=== PATIENT | male | born 1975 | race Caucasian/White ===

== ENCOUNTER 2019-05-24 08:57 | Inpatient (IN) | payer SELFPAY ==
[2019-05-24] VITALS (14 sets, daily range): BP systolic 99–137; BP diastolic 49–81; BMI 37.9
[~2019-05-24] VITALS: Ht 182.9 cm; Wt 136.8 kg
[2019-05-24 09:39] LABS: BASOPHILS 0.3 % (0-2); EOSINOPHILS 0.9 % (0-7); IMMATURE GRANULOCYTES 2.6 % (0-5); LYMPHOCYTES 8.6 % (15-50); MCH 38.4 pg (26.0-34.0); MCHC 35.2 g/dL (31.0-37.0); MEAN PLATELET VOLUME 10.2 fL (7.4-10.4); MONOCYTES 11.1 % (2-11); NEUTROPHILS 76.5 % (40-80); PLATELET COUNT 118 10x3/uL (130-400); RDW 15.9 % (11.5-14.5)
[2019-05-24 09:48] LABS: HEMATOCRIT 19.3 % (42.0-54.0); HEMOGLOBIN 6.8 g/dL (13.5-17.5); RBC 1.77 10x6/uL (4.20-6.10)
[2019-05-24 10:02] LABS: ALBUMIN 2.5 g/dL (3.4-5.0); ALKALINE PHOSPHATASE 206 U/L (46-116); ALT (SGPT) 45 U/L (10-68); AMYLASE - SERUM 89 U/L (25-115); BILIRUBIN - TOTAL 34.93 mg/dL (0.2-1.3); CALC OSMOLALITY 259 mosm/kg (275-300); CALCIUM 7.9 mg/dL (8.5-10.1); CARBON DIOXIDE 20.9 mmol/L (21.0-32.0); CHLORIDE - SERUM 87 mmol/L (98-107); CREATININE - SERUM 2.4 mg/dL (0.6-1.3); GLUCOSE 124 mg/dL (74-106); LIPASE 1697 U/L (73-393); POTASSIUM - SERUM 3.5 mmol/L (3.5-5.1); PROTEIN - SERUM 6.9 g/dL (6.4-8.2); SODIUM 123 mmol/L (136-145); TROPONIN-I < 0.017 ng/mL (0.000-0.060); UREA NITROGEN 44 mg/dL (7-18); eGFR NON AFRICAN AMERICAN 32 mL/min (90-120)
[2019-05-24 10:19] LABS: WBC 5.8 10x3/uL (4.8-10.8)
[2019-05-24 10:27] LABS: % SATURATION 94 % (15-55); IRON 140 ug/dl (35-150); TOTAL IRON BIND CAPACITY 148 ug/dl (260-445)
[2019-05-24 10:32] LABS: UNSAT IRON BIND CAPACITY 8 ug/dl (150-375)
--- NOTE | 2019-05-24 12:21 | NUR ---
PT REMAINS ALTERED. MOTHER AT BS. PRBC STARTED
[2019-05-24 12:39] LABS: INR 1.87 (0.85-1.17); PROTIME 20.9 SECONDS (11.6-15.0)
[2019-05-24 18:40] LABS: HEMATOCRIT 23.4 % (42.0-54.0)
--- NOTE | 2019-05-24 19:10 | NUR ---
Received patient in bed with eyes closed, assessment completed per flowsheet. Patient withdraws from noxious stimuli, unitelligible sounds/does not follow commands. Eyes reddened/jaundiced, dry crusty substance on eye lids. Tongue stuck to roof of mouth, patient unable to stick out tongue as intructed. S1/S2 noted NSR on telemetry, rythmic and regular. Breathing is shallow on 4L via NC with O2 sat 94%, lungs sounds clear bilateral upper and mid with diminished lower. Abdomen is distended/firm/obese with bowel sounds active x4, non-tender. Salas secured, concentrated darlene urine noted. All pulses bounding with generalized edema noted all, skin is severly jaundiced with dry cracking/sores noted bilateral feet. Unable to assess pain at this time, see flowsheet for details. All VSS and will continue to monitor.
--- NOTE | 2019-05-24 19:13 | NUR ---
1415-RECIEVED AND TRANSFERED TO ICU BED--BOTH EYELIDS CRUSTED OVER AND REQUIRED SALINE CLEANING-??PINK EYE??-MOTHER VOLUNTEERED THOSE ARE HIS CONTACTS-HE NEVER TAKES THEM OUt"-QUESTIONED IF THEY ARE THE MONTHLY TYPE-SHE SAID NO -JUST NEVER TAKES THEM OUT LIKE HIS FATHER--SALINE FLUSH TO EYES-R CONTACT REMVED-YELLOW MUCOUS TYPE STRANDS REMOVED-L EYE CONTINUE SALINE FLUSH-CONTACT VISIBLE-BUT CONTINUES STRONGLY ADHERED-ATTEMPTED TO GET PT TO STICK OUT HIS TONGUE-NOT ABLE TO--APPEARS ADHERED TO ROOF OF MOUTH-SALINE FLUSH TO ORAL CAVITY-R HAND IV INFUSING [address] ST OF PRBC-25% LBI--PLACED TO MONITOR FOR SR -RR 22-O2 SAT 94 R/A-MOTHER AT BEDSIDE HISTORIAN--REMOVED PT SOCKS-NOTED LARGE AMOUNT OF FUNGAL TYPE TISSUE/DRY SKIN AND DEBRIS TO COMPLETE FOOT JERARDO-PALPABLE PULSES STRONG JERARDO--PT STARTING TO SAY OCCASIONAL WORD-INCOMPREHESIBLE--NOTED BOTH HAND NAIL BEDS FUNGAL TYPE MATERIAL AND DEBRIS 1435-PRBC COMPLETED -UNIT NUMBER [id number] STARTED AND SET TO RUN OVER 2H WITH IV PUMP 1600-STERILE SALINE WASH REPEATED TO BOTH EYES-REMOVAL OF ADDITIONAL MUCUS STRANDS-NOT ABLE TO REMOVE L CONTAC 1630-MCLEOD CATH PLACED-PT INCREASED OBTUNDED 1744-PRBC INFUSED-LAB NOTIFIED 1814-REPEAT H AND H DONE AND AMMONIA LEVEL-PT INCREASED OBTUNDED AND NOT ABLE TO SAFELY SWALLOW 1824-AMMONIA LEVEL CALLED TO DR LIMA AND CHANGE OF ROUTE GIVEN TO RECTAL- REPEAT ORAL CARE DONE-ABLE TO MOVE TONGUE
--- NOTE | 2019-05-24 19:15 | NUR ---
Attempted to notify Head Orthopedic Team Physician of medication to be pulled, unable to reach. Will attempt to notify again later.
--- NOTE | 2019-05-24 19:30 | NUR ---
Unable to perform Suicide screening on patient, incomprehensible verbal responses/unable to follow commands at this time.
--- NOTE | 2019-05-24 21:00 | NUR ---
Patient laying in bed with eyes closed, withdraws from noxious stimuli/does not follow commands. steam station supervisor paged to notify of medication needs, unable to reach via phone. Will continue attempting to contact, no further needs and will continue to monitor.
--- NOTE | 2019-05-24 22:05 | NUR ---
welding equipment repairer supervisor notified of medication need, medication to be removed by snow removing supervisor and given as ordered.
--- NOTE | 2019-05-24 22:45 | NUR ---
Patient placed on High flow NC by RT, O2 increased to 6L.
--- NOTE | 2019-05-24 23:10 | NUR ---
Reassessment completed per flowsheet. Patient does not follow commands, unintelligible verbal responses. Eyes reddened with yellowed sclera, dried secretions on eye lids. S1/S2 noted NSR on telemetry, rythmic and regular. Breathing is shallow on 6L via HFNC with O2 sat 92%, lung sounds clear bilateral upper and mid with diminished lower. Abdomen is distended/obese with bowel sounds active x4, non-tender. All pulses bounding with generalized edema all, cap refill < 3 sec. Unable to assess pain at this time, repositioned for comfort. See flowhsheet for details, all VSS and will continue to monitor.
[2019-05-24 23:39] LABS: HEMATOCRIT 23.6 % (42.0-54.0)
--- NOTE | 2019-05-24 23:45 | NUR ---
300ml Lactulose / 700ml water enema given as ordered, patient unable to hold enema in with immediate fluid return noted. Patient placed on L side to facilitate retention, will reposition in 1 hr.
[2019-05-25] VITALS (96 sets, daily range): BP systolic 68–131; BP diastolic 22–87; BMI 38.0
--- NOTE | 2019-05-25 00:45 | NUR ---
Levophed initiated at 30 mcg/min for marked hypotension/bradycardia, will titrate as needed to maintain MAP > 65.
--- NOTE | 2019-05-25 01:40 | NUR ---
0020 - Patient HR decreased on telemetry, repositioned in bed with head elevated. Labored respirations observed, patient changed to NRB and will continue to monitor. 0030 - Unable to reach Dr Kirby x2 attempts, paged Nakia CARDOSO to notify of changes in condition. 0040 - Spoke to Nakia CARDOSO, updated on current status. Informed she will notify Dr Kirby to call. 0055 - Spoke to Dr Kirby via phone and updated on current status, new orders received. 0105 - Patient hypotensive with marked decrease in HR, breathing is gasping/agonal. Code Blue called, patient intubated by Dr Higuera.
--- NOTE | 2019-05-25 03:00 | NUR ---
Reassessment completed per flowsheet, no changes noted from previous assessment. S1/S2 noted Controlled Afib on telemetry. Breathing is even/unlabored on 2L via NC with O2 sat 100%, lung sounds clear bilateral upper and mid with diminished lower. Bilateral groin incision dressing CDI, soft to palpation, no bruising/bleeding noted. All pulses palpable with cap refill < 3 sec, skin warm/dry. Denies pain or other needs, see flowsheet for details. All VSS and will continue to monitor.
--- NOTE | 2019-05-25 03:10 | NUR ---
Reassessment completed per flowsheet. Eyes reddened/yellowed sclera, unable to remove contact L eye with multiple fluch attempts. ETT 7.5 @ 22cm secured, oral care/suctioning provided. S1/S2 noted NSR on telemetry with HR 92, rythmic and regular. Vent settings A/C R-20 V-550 60% P-5 with O2 sat 94%, lung sounds clear bilateral upper and mid with diminished lower. Abdomen is distended/firm with bowel sounds active x4, non-tender. All pulses bounding with generalized edema noted all, cap refill < 3 sec. Repositioned for comfort, no further needs at this time. See flowsheet for details, all VSS and will continue to monitor.
[2019-05-25 04:54] LABS: BASOPHILS 0.5 % (0-2); EOSINOPHILS 0.5 % (0-7); HEMATOCRIT 23.9 % (42.0-54.0); HEMOGLOBIN 8.1 g/dL (13.5-17.5); IMMATURE GRANULOCYTES 1.3 % (0-5); LYMPHOCYTES 8.2 % (15-50); MCH 36.2 pg (26.0-34.0); MCHC 33.9 g/dL (31.0-37.0); MEAN PLATELET VOLUME 9.6 fL (7.4-10.4); MONOCYTES 11.5 % (2-11); PLATELET COUNT 120 10x3/uL (130-400); RDW 21.5 % (11.5-14.5)
--- NOTE | 2019-05-25 05:00 | NUR ---
Patient sedated in bed on vent with eyes closed, uncoordinated movements observed. Patient does not open eyes/follow instructions, withdraws from noxious stimuli. Oral care/suctioning provided, repositioned for comfort. no further needs and will continue to monitor.
[2019-05-25 05:02] LABS: RBC 2.24 10x6/uL (4.20-6.10); WBC 8.8 10x3/uL (4.8-10.8)
[2019-05-25 05:03] LABS: INR 1.86 (0.85-1.17); MCV 106.7 fL (80.0-100.0); PROTIME 20.7 SECONDS (11.6-15.0)
[2019-05-25 05:23] LABS: ANION GAP 19.1 mmol/L (8-16); CALCIUM 7.4 mg/dL (8.5-10.1); CARBON DIOXIDE 20.4 mmol/L (21.0-32.0); CHOL - HDL RATIO 8.2 ratio (2.3-4.9); LDL-HDL RATIO 3.3 ratio (1.5-3.5); MAGNESIUM - SERUM 2.1 mg/dL (1.8-2.4); PHOSPHOROUS 5.1 mg/dL (2.5-4.9); POTASSIUM - SERUM 3.5 mmol/L (3.5-5.1); T4 THYROXIN - FREE 0.87 ng/dL (0.76-1.46); THYROID STIMULATING HORMONE 1.06 uIU/mL (0.36-3.74)
[2019-05-25 05:34] LABS: CREATININE - SERUM 3.4 mg/dL (0.6-1.3)
--- NOTE | 2019-05-25 07:00 | NUR ---
REPORT RECEIVED FROM THE OFF GOING RN. SEE ASSESSMENT IN THE PTS FLOW SHEET. PT NOTED TO HAVE INTERMITTED TREMORS. PT HAS PERIORBITAL EDEMA NOTED. YELLOW/RED SCELARA. PT JAUNDICED AND GENERLIZED ANASARCA NOTED. PT INTUBATED. LEFT LUNG SOUNDS TIGHT COMPARED TO HIS RIGHT LUNG. SUCTIONED BROWNISH/TANNINSH SECREATIONS. EYES PERRLA. PT DOES NOT FOLLOW COMMANDS BUT REACTS TO PAIN. PT NOT ON ANY SEDATION AT THIS TIME. ABD LARGE,ROUND AND TIGHT. HYPOACTIVE BS NOTED X4. FC NOTED WITH SCANT AMOUNT OF DARK CONSETRATED YELLOW/BROWN URINE. WILL MONITOR.
--- NOTE | 2019-05-25 07:45 | NUR ---
SPOKE WITH DR LIMA ABOUT THE PTS CONDITION. ORDERS FOR STAT ABG, START DOPAMINE, STAT CXR, PRO BMP.
--- NOTE | 2019-05-25 07:50 | NUR ---
ABGS OBTAINED. ORDERS FOR VANC 1G QD, MERREM 1G Q12H CONSULT RENAL, PULMONARY AND SURGERY FOR TRIALYSIS PLACEMENT.
--- NOTE | 2019-05-25 08:07 | NUR ---
DR MOON AND DR ROSS PAGED AND AWARE OF CONSULT.
--- NOTE | 2019-05-25 08:10 | NUR ---
WILL PAGE DR LAZO ABOUT TRIALYSIS BUT WILL WAIT FOR DR MOON TO GIVE OK TO PLACE IT AFTER HE ROUNDS AND SEES THE PT.
--- NOTE | 2019-05-25 08:24 | NUR ---
DR HERNANDEZ PAGEHelen. HE IS AWARE OF CONSULT. HOLD OFF ON IV ABT UNTIL DR HERNANDEZ SEES THE PT.
--- NOTE | 2019-05-25 09:26 | NUR ---
TREMORS GETTING WORSE. PT STILL UNABLE TO FOLLOW COMMANDS. PRN ATIVAN GIVEN. SEE DEC.
--- NOTE | 2019-05-25 09:36 | NUR ---
SPOKE WITH DR HERNANDEZ. HE STATED THAT HE WANTS THE PT DOWN IN REGULAR ICU.
--- NOTE | 2019-05-25 09:38 | NUR ---
SPOKE WITH REGULAR ICU CHARGE NURSE ABOUT DR HERNANDEZ WANTING THE PT DOWNSTAIRS.
--- NOTE | 2019-05-25 10:17 | NUR ---
DR LIMA AT THE PTS BEDSIDE. MOTHER WAS NOT PRESENT IN THE WAITING ROOM.
--- NOTE | 2019-05-25 10:52 | NUR ---
DR HERNANDEZ AT THE PTS BEDSIDE. HE STATED THAT HE IS GOING TO GO AHEAD AND PUT IN A CVL. I EXPLAINED THAT DR LAZO WAS CONSULTED FOR A POSSIBLE TRIALYSIS. DR HERNANDEZ WANTS TO PROCEED WITH CVL PLACEMENT. MOTHER NOT IN THE WAITING ROOM. SHE WAS CALLED AND TELEPHONE CONSENT FOR CVL PLACEMENT OBTAINED AND WITTNESSED WITH MAUREEN RN. PREPARE FOR CVL AND BRONCH SOON.
--- NOTE | 2019-05-25 11:39 | NUR ---
DR HERNANDEZ AT THE PTS BEDSIDE. BRONCH COMPLETED. CVL PLACED PER DR HERNANDEZ IN THE LEFT SUBCLAVIAN. ORDERS TO GIVE 2MG OF VERSED NOW AND START VERSED GTT AT 2MG/H. DC DIPROVAN AND ATIVAN Q2PRN.
--- NOTE | 2019-05-25 14:12 | NUR ---
DR HERNANDEZ STATED TO GIVEN 2MG VERSED BOLUS AND INCREASED VERSED TO 4MG/H. DR HERNANDEZ AT THE PTS BEDSIDE AND PLACED HUMBERTO IN HIS LEFT RADIAL ARTERY.
--- NOTE | 2019-05-25 14:35 | NUR ---
PT TRANSFERED DOWN TO REGULAR IN ICU WITH STABLE VITALS SIGNS.
[2019-05-25 14:37] LABS: MACROPHAGES BF 7 %; MESOTHELIALS BF 1 %; NEUT - BF 78 %
[2019-05-25 15:28] LABS: HEMATOCRIT 24.2 % (42.0-54.0); HEMOGLOBIN 8.4 g/dL (13.5-17.5)
--- NOTE | 2019-05-25 15:44 | NUR ---
PT ARRIVED TO 2305 1450 SEDATED ON VENT, L SUBCLAVIAN CVL DRESSING CDI, SEE IV FLOWSHEET, L RADIAL A LINE ZEROED, GOOD WAVEFORM, WRIST PROTECTOR IN PLACE, MCLEOD DRAINING DARK URINE, SEE REASSESSMENT FOR DETAILS. DR HERNANDEZ PAGED FOR LOW BP DESPITE PRESSORS, ORDERS FOR SET RATE VASOPRESSIN, AWAITING FROM PHARMACY. AWAITING LACTULOSE ENEMA FROM PHARMACY.
--- NOTE | 2019-05-25 16:16 | NUR ---
SPO2 DROPPING TO 80% SUCTIONING DONE, RT IN ROOM, DR HERNANDEZ PAGED AND GAVE ORDERS TO RT
--- NOTE | 2019-05-25 16:17 | NUR ---
PER DR. HERNANDEZ A TIMED ALVEOLAR RECRUITMENT WAS DONE. PEEP INCREASED TO 25 FOR EXACTLY 40 SECS WAS PERFORMED. ABG WILL BE CHECKED EXACTLY 45 MINS AFTER PEEP INCREASED TO 8 AFTER RECRUITMENT EXERCISE.
--- NOTE | 2019-05-25 17:42 | NUR ---
1700 DR CHOI IN UNIT, DISCUSSED PTS LABILE BP AND OKAYED TO HOLD LACTULOSE AND START RECTAL TUBE AT SHIFT CHANGE FOR LACTULOSE ADMIN RT STATED THEY NOTIFIED DR HERNANDEZ OF FOLLOW UP ABGS, PAGED TO VERIFY
--- NOTE | 2019-05-25 18:19 | NUR ---
SPOKE WITH DR HERNANDEZ ABOUT ABGS, STATED TO VERIFY WITH RENAL PAGED DR MOON AND RECIEVED RETURNCALL REVIEWED LABS, ORDERS FOR AN AMP BICARB NOW AND IN 30 MINUTES
--- NOTE | 2019-05-25 20:32 | NUR ---
ADJUSTED PT PEEP TO 10. TO HELP WITH OXYGENATION. SATS STILL 85% ON ABG
[2019-05-25 22:42] LABS: APPEARANCE HAZY (CLEAR); BILIRUBIN 3+ (NEGATIVE); COLOR DK YELLOW (YELLOW); GLUCOSE NEGATIVE (NEGATIVE); KETONE NEGATIVE (NEGATIVE); NITRITE NEGATIVE (NEGATIVE); PROTEIN 1+ mg/dL (NEGATIVE); SPECIFIC GRAVITY 1.015 (1.005-1.020); UROBILINOGEN NORMAL (NORMAL)
[2019-05-25 22:43] LABS: BACTERIA MANY /hpf (NONE SEEN); RED CELLS - URINE 25-50 /hpf (0-5)
[2019-05-25 23:23] LABS: HEMATOCRIT 25.7 % (42.0-54.0); HEMOGLOBIN 8.9 g/dL (13.5-17.5)
--- NOTE | 2019-05-25 23:58 | NUR ---
1900 REPORT RECEIVED CARE ASSUMED ASSESSMENT DONE SEE FLOW SHEET. PT UNSTABLE. RECTAL TUBE INSERTED. LINEN CHANGE. AIR OVERLAY. 1999 ABG DRAWN. DECRESE O2 SAT AND BP. DR VICTOR AND DR MOON INFORMED OF PT STATUS. UNABLE TO TURN. PEEP UP TO 10. MEDS ORDERED. PHARMACY CALLED. 2099 MEDS GIVENT TITRATED TO AFFECT. STILL UNABLE TO TURN. 2299 REASSSESSMENT DONE SEE FLOW SHEET. VSS. TEACHING PROVIDED QUESTIONS ANSWERED.
[2019-05-26] VITALS (109 sets, daily range): BP systolic 10–135; BP diastolic 44–75
--- NOTE | 2019-05-26 01:00 | NUR ---
TEMP 102. ICE PACKS APPLIED WILL CONTINUE TO MONITOR.
--- NOTE | 2019-05-26 03:00 | NUR ---
REASSESSMENT DONE SEE FLOW SHEET. HUMBERTO PRESSURE DROP DAMPENED WAVE FORM. NO COORELATION WITH NIBP. WILL CONTINUE TO MONITOR.
[2019-05-26 05:23] LABS: INR 2.66 (0.85-1.17); PROTIME 27.6 SECONDS (11.6-15.0)
[2019-05-26 05:25] LABS: BASOPHILS 0.1 % (0-2); EOSINOPHILS 0 % (0-7); HEMATOCRIT 25.1 % (42.0-54.0); HEMOGLOBIN 8.4 g/dL (13.5-17.5); IMMATURE GRANULOCYTES 0.6 % (0-5); MCHC 33.5 g/dL (31.0-37.0); MEAN PLATELET VOLUME 10.4 fL (7.4-10.4); MONOCYTES 6.8 % (2-11); NEUTROPHILS 89.5 % (40-80); RDW 24.2 % (11.5-14.5)
[2019-05-26 05:37] LABS: MCV 104.6 fL (80.0-100.0); PLATELET COUNT 85 10x3/uL (130-400); WBC 17.2 10x3/uL (4.8-10.8)
[2019-05-26 05:38] LABS: ALBUMIN 2.3 g/dL (3.4-5.0); ANION GAP 25.9 mmol/L (8-16); CALCIUM 7.2 mg/dL (8.5-10.1); POTASSIUM - SERUM 3.9 mmol/L (3.5-5.1)
[2019-05-26 05:39] LABS: BILIRUBIN - TOTAL 34.82 mg/dL (0.2-1.3); CREATININE - SERUM 4.9 mg/dL (0.6-1.3); PROTEIN - SERUM 6.1 g/dL (6.4-8.2)
--- NOTE | 2019-05-26 07:15 | NUR ---
REPORT RECEIVED. ASSESSMENT COMPLETE PER FLOW SHEET. VSS. NO NEW CHANGES ORAL ENDOTRACH CARE ADM. WILL CONTINUE TO MONITOR
[2019-05-26 08:05] LABS: PLATELET ESTIMATE DECREASED
--- NOTE | 2019-05-26 08:13 | NUR ---
FAMILY AT BEDSIDE GIVEN UDPATE.
--- NOTE | 2019-05-26 11:15 | NUR ---
REASSESSMENT COMPLETE PER FLOW SHEET. VSS. NO NEW CHANGES WILL CONTINUE TO MONITOR. DR MOON AT BEDSIDE GIVEN UDPATE. NEW ORDERS RECEIVED
--- NOTE | 2019-05-26 12:10 | NUR ---
DR SOUZA CALLED [facility] CONSULT. STATED OKAY
--- NOTE | 2019-05-26 15:00 | NUR ---
REASSESSMENT COMPLETE PER FLOW SHEET. VSS. NO NEW CHANGES PT RESTING COMFORTABLY WILL CONTINUE TOMONITOR
[2019-05-26 15:19] LABS: HEMATOCRIT 24.9 % (42.0-54.0); HEMOGLOBIN 8.7 g/dL (13.5-17.5)
--- NOTE | 2019-05-26 16:14 | NUR ---
DR LAZO PAGED AWAITING CALL BACK
--- NOTE | 2019-05-26 16:28 | NUR ---
DR SOUZA PAGED AWAITING CALL BACK
--- NOTE | 2019-05-26 16:29 | NUR ---
DR CHOI AT BEDSIDE GIVEN UDPATE.
--- NOTE | 2019-05-26 17:34 | MORECARE ---
CASE MANAGEMENT DISCHARGE SUMMARY PATIENT: GUIDO CHANEL UNIT: [id number] ADM DATE: 05/24/19 AGE: 43 : [birth year] SEX: M ROOM/BED: D.2305 AUTHOR: OMA EDOUARD PHYSICIAN: REFERRING PHYSICIAN: NAMITA LIMA MD DATE OF SERVICE: 05/26/19 Discharge Plan Patient Name: GUIDO CHANEL Facility: [facility]:[place] : 1975 Planned Disposition: Anticipated Discharge Date: Discharge Date: Expected LOS: Initial Reviewer: [email or web address] Initial Review Date: 05/26/2019 Generated: 05/26/19 6:34 pm DCP- Discharge Planning Updated by [email or web address]: Manisha Mccarthy on 05/25/19 5:[address] CM spoke with [email or web address] and patient is a resident of [place] was just here visiting his mother. Unable to apply for [place] Medicaid. Stuart checked and he doesn't have Medicaid in [place] either.CM will continue to follow and assist as needed with discharge planning / needs. DCPIA - Discharge Planning Initial Assessment Updated by [email or web address]: Manisha Mccarthy on 05/26/19 5:28 pm * Is the patient Alert and Oriented? No * PCP unknown * Pharmacy [facility] * Preadmission Environment Home with Family * ADLs Independent * Equipment None * List name and contact numbers for known caregivers / representatives who currently or will assist patient after discharge: EREN CHANEL - MOTHER- [phone] * Verbal permission to speak to the caregivers and representatives has been obtained from the patient. N/A * Community resources currently utilized None * Additional services required to return to the preadmission environment? No * Can the patient safely return to the preadmission environment? Yes * Has this patient been hospitalized within the prior 30 days at any hospital? No Patient Name: GUIDO CHANEL Page [phone] at 3167 All edits/amendments must be made on the electronic document DICTATION DATE: 05/26/191733 FINANCE LEAD: ANGEL 05/26/196 RPT#: [id number] DC DATE: STATUS: ADM IN [facility] [address] [place] [address] END OF REPORT
--- NOTE | 2019-05-26 17:46 | MORECARE ---
CASE MANAGEMENT DISCHARGE SUMMARY PATIENT: GUIDO CHANEL UNIT: [id number] ADM DATE: 05/24/19 AGE: 43 : [birth year] SEX: M ROOM/BED: D.2305 AUTHOR: JAVANDOC PHYSICIAN: REFERRING PHYSICIAN: NAMITA LIMA MD DATE OF SERVICE: 05/26/19 Discharge Plan Patient Name: GUIDO CHANEL Facility: [facility]:[place] : 1975 Planned Disposition: Anticipated Discharge Date: Discharge Date: Expected LOS: Initial Reviewer: [email or web address] Initial Review Date: 05/26/2019 Generated: 05/26/19 6:46 pm Comments DCP- Discharge Planning Updated by [email or web address]: Manisha Mccarthy on 05/26/19 4:[address] Patient Name: GUIDO CHANEL Admission Status: ER Accout number: [id number] Admission Date: 05-24-2019 : 1975 Admission Diagnosis: Attending: NAMITA LIMA Current LOS: 2 Anticipated DC Date: Planned Disposition: Primary Insurance: UNINSURED DISCOUNT PLAN Discharge Planning Comments: CM met with patient's mother (Eren) at bedside after explaining CM role and obtaining verbal consent. Patient lives in [place] and is here visiting his mother for the last two weeks. Eren states that she plans for him to live with her upon discharge if he survives this. She also stated that he needs to go to an alcohol treatment facility. Patient is suppose to have hemodialysis today after placement of cath. Eren denies any discharge needs at this time. CM will continue to follow and assist as needed with discharge planning / needs. Stamp Pad Finisher: Manisha Mccarthy DCP- Discharge Planning Updated by [email or web address]: Manisha Mccarthy on 05/25/19 5:[address] CM spoke with [email or web address] and patient is a resident of [place] was just here visiting his mother. Unable to apply for [place] Medicaid. Stuart checked and he doesn't have Medicaid in [place] either.CM will continue to follow and assist as needed with discharge planning / needs. DCPIA - Discharge Planning Initial Assessment Updated by [email or web address]: Manisha Mccarthy on 05/26/19 5:28 pm * Is the patient Alert and Oriented? No * PCP unknown * Pharmacy [facility] * Preadmission Environment Home with Family * ADLs Independent * Equipment None * List name and contact numbers for known caregivers / representatives who currently or will assist patient after discharge: EREN CHANEL - MOTHER- [phone] * Verbal permission to speak to the caregivers and representatives has been obtained from the patient. N/A * Community resources currently utilized None * Additional services required to return to the preadmission environment? No * Can the patient safely return to the preadmission environment? Yes * Has this patient been hospitalized within the prior 30 days at any hospital? No Last DP export: 05/26/19 4:34 p Patient Name: GUIDO CHANEL Page [phone] at 1746 All edits/amendments must be made on the electronic document DICTATION DATE: 05/26/191745 SCHOOL PSYCHOLOGY PROFESSOR: ANGEL 05/26/191745 RPT#: [id number] DC DATE: STATUS: ADM IN [facility] [address] [place] [address] END OF REPORT
[2019-05-26 19:08] LABS: ACID FAST SMEAR Negative (()); AFB SPECIMEN PROCESSING Concentration (())
--- NOTE | 2019-05-26 19:26 | NUR ---
PT RECEIVED UNRESPONSIVE TO STIMULI. VSS ON PRESSERS. MCLEOD WITH DARK CONCENTATED URINE. RECTAL TUBE IN PLACE. SKIN YELLOW IN COLOR. VENT ON AC RATE 20, TV 500, O2 100%, PEEP 10. CVP AND A-LINE ZERO'D. WILL CONTINUE TO OBSERVE.
--- NOTE | 2019-05-26 20:30 | NUR ---
DR HERNANDEZ CALLED TO GET REPORT ON PT. GAVE ORDERS FOR LACTULOSE Q6H VIA OGT. ORDER ENTERED INTO [address] [facility] [facility] I.
[2019-05-26 23:44] LABS: HEMATOCRIT 24.8 % (42.0-54.0); HEMOGLOBIN 8.5 g/dL (13.5-17.5)
[2019-05-27] VITALS (104 sets, daily range): BP systolic 80–118; BP diastolic 32–545; Ht 182.9 cm; Wt 136.8 kg
--- NOTE | 2019-05-27 01:40 | NUR ---
PT MAP MAINTAINING 64 TO 70 NO TITRATION NOTED. NO S/S OF DISTRESS. WILL CONTINUE TO OBSERVE.
--- NOTE | 2019-05-27 03:35 | NUR ---
REASSESSMENT COMPLETED, SEE FLOW SHEET
--- NOTE | 2019-05-27 04:16 | NUR ---
DRESSINGS TO RIGHT IJ AND LEFT SUBCLAVIAN CHANGED PER PROTOCOL. PT TOLERATED WELL. WILL CONTINUE TO OBSERV
[2019-05-27 05:44] LABS: INR 1.97 (0.85-1.17); PROTIME 21.8 SECONDS (11.6-15.0)
[2019-05-27 05:45] LABS: BASOPHILS 0.2 % (0-2); EOSINOPHILS 0.1 % (0-7); HEMATOCRIT 23.8 % (42.0-54.0); HEMOGLOBIN 8.3 g/dL (13.5-17.5); IMMATURE GRANULOCYTES 2.3 % (0-5); LYMPHOCYTES 3.7 % (15-50); MCH 34.4 pg (26.0-34.0); MCHC 34.9 g/dL (31.0-37.0); MEAN PLATELET VOLUME 9.7 fL (7.4-10.4); MONOCYTES 7.1 % (2-11); NEUTROPHILS 86.6 % (40-80); RBC 2.41 10x6/uL (4.20-6.10); RDW 26.2 % (11.5-14.5); WBC 13.2 10x3/uL (4.8-10.8)
[2019-05-27 05:48] LABS: MCV 98.8 fL (80.0-100.0); PLATELET COUNT 50 10x3/uL (130-400)
[2019-05-27 05:58] LABS: VANCOMYCIN - RANDOM 16.4 ug/mL (10.0-20.0)
[2019-05-27 06:53] LABS: ANION GAP 18.9 mmol/L (8-16); BILIRUBIN - TOTAL 31.63 mg/dL (0.2-1.3); CARBON DIOXIDE 23.2 mmol/L (21.0-32.0); POTASSIUM - SERUM 3.1 mmol/L (3.5-5.1); PROTEIN - SERUM 5.8 g/dL (6.4-8.2)
[2019-05-27 06:54] LABS: CALCIUM 6.6 mg/dL (8.5-10.1)
--- NOTE | 2019-05-27 07:15 | NUR ---
REPORT RECEIVED. ASSESSMENT COMPLETE PER FLOW SHEET. VSS. NO NEW CHANGES PT RESTING COMFORTALBY WILL CONTINUE TO MONITOR
--- NOTE | 2019-05-27 09:28 | NUR ---
Nutrition follow-up: Pt NPO; intubated, sedation on hold Labs reviewed Wt: 321# 3 pressors in use Rectal tube Pt too unstable for nutrition support at this time Will start nutrition support when medically feasible. RDN following.
--- NOTE | 2019-05-27 11:30 | NUR ---
REASSESSMENT COMPLETE PER FLOW SHEET. VSS. NO NEW CDHANGES WILL CONTINUE TO MONITOR
--- NOTE | 2019-05-27 14:55 | NUR ---
DIALYSIS AT [facility].
--- NOTE | 2019-05-27 15:00 | NUR ---
REASSESSMENT COMPLETE PER FLOW SHEET. VSS. NO NEW CHANGES WILL CONTINUE TO MONITOR
[2019-05-27 15:50] LABS: HEMATOCRIT 23.7 % (42.0-54.0); HEMOGLOBIN 8.4 g/dL (13.5-17.5)
--- NOTE | 2019-05-27 17:40 | NUR ---
FAMILY AT BEDSIDE GIVEN UDPATE
--- NOTE | 2019-05-27 19:10 | NUR ---
REPORT RECEIVED. PT ON VENT, SOME RESPONSIVENESS TO TOUCH. VSS ON VESOPRESSIN AND EPI. RECTAL TUBE AND MCLEOD PATENT. OGT TO LIS. ASSESSMENT COMPLETED, SEE FLOW SHEET. WILL CONTINUE TO OBSERVE.
--- NOTE | 2019-05-27 20:15 | NUR ---
MOTHER AT BEDSIDE. UPDATE GIVEN AND QUESTIONS ANSWERED.
--- NOTE | 2019-05-27 22:10 | NUR ---
MOTHER LEFT ROOM, STATES IF NEEDED SHE IS STAYING IN WAITING ROOM.
--- NOTE | 2019-05-27 23:09 | NUR ---
PT MAP DECREASED BELOW 65 LOW 48 AND LEVOPHED RESTARTED AT 5MCG/MIN AND TITRATED TO 7MCG/MIN AT THIS TIME AND IS MAINTAINING MAP 65. WILL CONTINUE TO OBSERVE.
[2019-05-27 23:20] LABS: HEMATOCRIT 23.8 % (42.0-54.0); HEMOGLOBIN 8.4 g/dL (13.5-17.5)
[2019-05-28] VITALS (96 sets, daily range): BP systolic 77–159; BP diastolic 31–97
--- NOTE | 2019-05-28 03:45 | NUR ---
REASSESSMENT COMPLETED, SEE FLOW SHEET. CHG BATH GIVEN. WITH LINEN CHANGE. VSS WITH PRESSERS. NO S/S OF DISTRESS. WILL CONTINUE TO OBSERVE
[2019-05-28 05:38] LABS: BASOPHILS 0.2 % (0-2); EOSINOPHILS 0 % (0-7); HEMATOCRIT 24.7 % (42.0-54.0); HEMOGLOBIN 8.7 g/dL (13.5-17.5); IMMATURE GRANULOCYTES 0.8 % (0-5); LYMPHOCYTES 4.6 % (15-50); MCH 34.9 pg (26.0-34.0); MCHC 35.2 g/dL (31.0-37.0); MCV 99.2 fL (80.0-100.0); MEAN PLATELET VOLUME 10.3 fL (7.4-10.4); MONOCYTES 8.1 % (2-11); NEUTROPHILS 86.3 % (40-80); RBC 2.49 10x6/uL (4.20-6.10); RDW 25.9 % (11.5-14.5)
[2019-05-28 05:39] LABS: PLATELET COUNT 39 10x3/uL (130-400)
[2019-05-28 06:11] LABS: ALBUMIN 1.9 g/dL (3.4-5.0); CARBON DIOXIDE 26.4 mmol/L (21.0-32.0); CREATININE - SERUM 5.1 mg/dL (0.6-1.3); VANCOMYCIN - RANDOM 10.7 ug/mL (10.0-20.0)
[2019-05-28 06:15] LABS: INR 1.87 (0.85-1.17); PROTIME 20.9 SECONDS (11.6-15.0)
[2019-05-28 06:49] LABS: ANION GAP 17.5 mmol/L (8-16); BILIRUBIN - TOTAL 31.9 mg/dL (0.2-1.3); PROTEIN - SERUM 5.6 g/dL (6.4-8.2)
[2019-05-28 06:51] LABS: CALCIUM 6.5 mg/dL (8.5-10.1); POTASSIUM - SERUM 2.9 mmol/L (3.5-5.1)
--- NOTE | 2019-05-28 07:21 | NUR ---
DR. LIMA PAGED TO REPORT PLATELET LEVEL OF 39, CALCIUM 6.5. WAITING FOR RETURN CALL. HAVE REPORTED TO ON COMING STAFF
--- NOTE | 2019-05-28 07:33 | NUR ---
SPOKE WITH DR LIMA AND REPORTED ABNORMAL LABS, STATES HE WILL LOOK AT THEM WHEN HE COMES IN. NO ORDERS AT THIS TIME.
[2019-05-28 07:54] LABS: PLATELET ESTIMATE DECREASED
[2019-05-28 07:57] LABS: ANISOCYTOSIS OCC; POLYCHROMASIA OCC; ROULEAUX OCC
--- NOTE | 2019-05-28 08:36 | NUR ---
LYING IN BED WITH EYES CLOSED ON VENT AT THIS TIME. PT DOES NOT FOLLOW COMMANDS. WILL SQUEEZE HAND AT TIMES WHEN HIS HANDS ARE TOUCHED HOWEVER PT DOES NOT SQUEEZE HAND WHEN ASKED. DOES ALSO MOVE FEET AT TIMES IN "TWITCHING" MOTION. UNABLE TO DETERMINE IF ARE PURPOSEFUL. ALSO CURRENTLY ON 3 PRESSORS, SEE IV FLOWSHEET. TURNED Q2H. ORAL CARE PROVIDED Q2H. WILL CONTINUE PLAN OF CARE.
--- NOTE | 2019-05-28 10:08 | NUR ---
NO CHANGE. MOTHER AT BEDSIDE. UPDATES PROVIDED. SHE REQUESTED TO SPEAK WITH DR HERNANDEZ WHEN HE ROUNDS ON PT, PHYSICIAN NOTIFIED. WILL CONTINUE PLAN OF CARE.
--- NOTE | 2019-05-28 11:11 | NUR ---
WILL HOLD ANTIBIOTIC UNTIL DIALYSIS COMPLETE.
--- NOTE | 2019-05-28 11:13 | NUR ---
TEMP 101.0, PER DR LIMA COLLECT BLOOD CULTURES.
--- NOTE | 2019-05-28 13:10 | NUR ---
NO ACUTE DISTRESS NOTED. DIALYSIS IN PROGRESS, PRESSORS TITRATED TO ORDER, SEE IV FLOWSHEET (LEVOPHED, VASOPRESSIN, AND EPINEPHERINE). TURNED Q2H. ORAL CARE PROVIDED Q2H. WILL CONTINUE PLAN OF CARE.
[2019-05-28 15:06] LABS: HEMATOCRIT 26.2 % (42.0-54.0)
[2019-05-28] MEDS ORDERED: LISINOPRIL-HCT1 EAC4 PO (15:21)
--- NOTE | 2019-05-28 17:41 | NUR ---
PT TAKEN AND RETURNED FROM HEAD CT VIA BED ACCOMPANIED BY NURSING STAFF, RESPIRATORY STAFF, AND RADIOLOGY STAFF WITH MONITORING EQUIPMENT AND IV MEDICATIONS. WHEN PT REUTNED CHG BATH GIVEN, AND RECTAL TUBE WAS NOTED TO HAVE COME OUT AND WAS REPLACED AT THIS TIME. PT NOTED TO NOT MOVE EXTREMITIES DURING THIS TIME, NOT ATTEMPTING TO PULL AT LINES OR TUBES, RESTRAINTS REMOVED AT THIS TIME. FAMILY AT BEDSIDE NOW. DURING CHG BATH, MCLEOD CARE ALSO PROVIDED. NO ACUATE DISTRESS NOTED. WILL CONTINUE TO OBSERVE.
--- NOTE | 2019-05-28 18:30 | NUR ---
TEMPERATURE INCREASE TO 101.7. PRN TYLENOL ADMIN AND ICE PACKS APPLIED TO PT, ROOM TEMPERATURE AT LOWEST TEMP AVALIABLE AND LINENS REMOVED (ONLY GOWN IN PLACE). BLOOD CULTURES ALREADY OBTAINED TODAY FOR FEVER. WILL CONTINUE TO OBSERVE.
--- NOTE | 2019-05-28 19:00 | NUR ---
REPROT REC'D, ASSUMED PT'S CARE. ASSESSMENT COMPLETED PER FLOWSHEETS. PT INTUBATED ON VENT, AROUSES WITH TACTILE STIMULATION, NOT FOLLOW COMMANDS. SR ON CM. CONT PRESSORS PER ORDER TO KEEP SBP> 90S. CONT TO MONITOR.
--- NOTE | 2019-05-28 20:00 | NUR ---
DECREASED FIO2 TO 80% PER SPO2 OF 98% ABG 05/28/19 0445 AM PO2 145
--- NOTE | 2019-05-28 20:45 | NUR ---
MOTHER AT BEDSIDE. UPDATED.
--- NOTE | 2019-05-28 21:30 | NUR ---
SCHEDULED MEDS GIVEN PER ORDER WITHOUT DIFFIC. MOTHER REMAINS AT BEDSIDE. SKIN CARE PROVIDED TO PT. CPOC.
--- NOTE | 2019-05-28 23:00 | NUR ---
REASSESSMENT COMPLETED. PT ON VENT, NO ACUTE CHANGES IN PT'S STATUS AT THIS TIME. CONT PRESSORS TO KEEP SBP> 90S PER ORDER. CPOC.
[2019-05-28 23:29] LABS: HEMATOCRIT 25.7 % (42.0-54.0); HEMOGLOBIN 8.8 g/dL (13.5-17.5)
[2019-05-29] VITALS (101 sets, daily range): BP systolic 71–137; BP diastolic 38–77
--- NOTE | 2019-05-29 03:00 | NUR ---
REASSESSMENT COMPLETED PER FLOW SHEETS. NO ACUTE SIGNS OF DISTRESS NOTED AT THIS TIME. VSS. CONT PRESSORS TO KEEP SBP> 90S. CONT TO MONITOR.
[2019-05-29 05:20] LABS: BASOPHILS 0.3 % (0-2); EOSINOPHILS 0 % (0-7); HEMATOCRIT 25.3 % (42.0-54.0); HEMOGLOBIN 8.6 g/dL (13.5-17.5); IMMATURE GRANULOCYTES 1.3 % (0-5); LYMPHOCYTES 1.4 % (15-50); MCH 34.3 pg (26.0-34.0); MCV 100.8 fL (80.0-100.0); MEAN PLATELET VOLUME 11.1 fL (7.4-10.4); MONOCYTES 11.3 % (2-11); NEUTROPHILS 85.7 % (40-80); RBC 2.51 10x6/uL (4.20-6.10); RDW 25.4 % (11.5-14.5); WBC 13.3 10x3/uL (4.8-10.8)
[2019-05-29 05:23] LABS: PLATELET COUNT 32 10x3/uL (130-400)
[2019-05-29 05:28] LABS: INR 1.99 (0.85-1.17); PROTIME 21.9 SECONDS (11.6-15.0)
[2019-05-29 05:43] LABS: ALBUMIN 1.9 g/dL (3.4-5.0); CARBON DIOXIDE 26.8 mmol/L (21.0-32.0); CREATININE - SERUM 4.5 mg/dL (0.6-1.3); VANCOMYCIN - RANDOM 7.4 ug/mL (10.0-20.0)
[2019-05-29 05:46] LABS: ANION GAP 16.1 mmol/L (8-16); POTASSIUM - SERUM 2.9 mmol/L (3.5-5.1)
[2019-05-29 05:47] LABS: BILIRUBIN - TOTAL 30.78 mg/dL (0.2-1.3); CALCIUM 6.6 mg/dL (8.5-10.1); PROTEIN - SERUM 5.9 g/dL (6.4-8.2)
[2019-05-29 09:10] LABS: HEPATITIS C ANTIBODY <0.1 S/CO RAT (0.0-0.9)
--- NOTE | 2019-05-29 09:49 | NUR ---
DR. HERNANDEZ IN UNIT. ORDERED TO TRITRATE DOWN EPINEPHRINE AND START LEVOPHED TO MAINTAIN BP.
--- NOTE | 2019-05-29 10:58 | NUR ---
NUTRITION F/U PT REMAINS ON VENT WITH NO CURRENT NUTRITION SUPPORT. PULMONARY NOTE REVIEWED, POSSIBLE START TPN. WILL MONITOR AND ASSIST NEEDED. RD FOLLOWING
--- NOTE | 2019-05-29 11:46 | NUR ---
DR. HERNANDEZ NOTIFIED OF INCREASE IN TEMPERATURE. ALSO UPDATED HIM ON VITALS AFTER FENTANYL WAS GIVEN. ORDERED DIETARY CONSULT FOR ADVISE ON TUBE FEEDINGS.
--- NOTE | 2019-05-29 11:48 | NUR ---
PT CURRENTLY ON DIALYSIS. SPOKE WITH DR. HERNANDEZ. DOES NOT WANT TUBE FEEDINGS STARTED AT THIS TIME. HE SAYS "PT IN TOO MANY PRESSORS."
--- NOTE | 2019-05-29 13:35 | NUR ---
RESTING COMFORTABLY. DIALYSIS FINISHED AROUND 1315. TOOK OFF 3L. CURRENTLY ON VASOPRESSIN AT 0.04UNITS/MIN, LEVOPHED AT 5MCG/MIN, AND EPI AT 3MCG/MIN. WILL CONTINUE TO WEAN OFF PRESSORS TOLERATED.
[2019-05-29 15:19] LABS: HEMATOCRIT 26.3 % (42.0-54.0)
--- NOTE | 2019-05-29 19:10 | NUR ---
NOTICED PATIENT TREMBLING, PULLING, AND REACHING FOR ETT/OGT TUBE. BILAT SOFT WRIST RESTRAINTS PLACED AT THIS TIME. LEFT RADIAL A-LINE NOTED SYSTOLIC BP LEVOPHED TITRATED AT THIS TIME SEE IV FLOWSHEET FOR DETAILS.
--- NOTE | 2019-05-29 21:35 | NUR ---
DR. HERNANDEZ CALLED - PATIENT STATUS UPDATE GIVEN NEW PRN ORDERS RECEIVED
[2019-05-30] VITALS (96 sets, daily range): BP systolic 83–141; BP diastolic 44–99
[2019-05-30 06:08] LABS: BASOPHILS 0.2 % (0-2); EOSINOPHILS 0 % (0-7); HEMATOCRIT 25.4 % (42.0-54.0); HEMOGLOBIN 8.6 g/dL (13.5-17.5); IMMATURE GRANULOCYTES 3.9 % (0-5); LYMPHOCYTES 6.4 % (15-50); MCH 34.4 pg (26.0-34.0); MCHC 33.9 g/dL (31.0-37.0); MCV 101.6 fL (80.0-100.0); MEAN PLATELET VOLUME 11.5 fL (7.4-10.4); NEUTROPHILS 81.5 % (40-80); RDW 24.5 % (11.5-14.5); WBC 10.5 10x3/uL (4.8-10.8)
[2019-05-30 06:09] LABS: PLATELET COUNT 40 10x3/uL (130-400)
[2019-05-30 06:15] LABS: PLATELET ESTIMATE DECREASED
[2019-05-30 06:29] LABS: ALBUMIN 1.8 g/dL (3.4-5.0); ANION GAP 14.5 mmol/L (8-16); CALCIUM 7.1 mg/dL (8.5-10.1); CARBON DIOXIDE 28.9 mmol/L (21.0-32.0); CREATININE - SERUM 3.9 mg/dL (0.6-1.3); POTASSIUM - SERUM 3.4 mmol/L (3.5-5.1)
[2019-05-30 06:30] LABS: BILIRUBIN - TOTAL 29.44 mg/dL (0.2-1.3); PROTEIN - SERUM 5.7 g/dL (6.4-8.2)
--- NOTE | 2019-05-30 07:23 | NUR ---
CONTACTED PHARMACY AND SPOKE WITH NIKKI - SHE IS GOING TO DOUBLE CHECK [facility] FOR CARDIAC DRIPS AND WILL ENTER THE ORDER PER PATELS REQUESTS.
--- NOTE | 2019-05-30 07:30 | NUR ---
EYES OPEN, DOES NOT MAKE EYE CONTACT, DOES NOT OBEY COMMANDS. MOVING RANDOMLY IN BED JERKING TYPE MOTION. SKIN WARM AND DRY. ETT SECURE TO VENT BILATERAL LUNG SOUNDS EQUAL. RIJ DIALYSIS CATH LOCKED. DRESSING DRY AND INTACT. LEFT SUBCLAVIAN TRIPLE LUMEN DRESSING DRY AND INTACT. LEVOPHED AT 6 MCG/MIN. VASOPRESSIN 0.04 MCG/MIN. 1000CC D5W WITH 3 AMPS OF BICAR INFUSING AT 70 ML HOUR. PROTONIX 8 MG HOUR. NS AT KVO FOR IVPB. KCL RIDER INFUSING FOR POTASSIUM 3.4. SUCTION MOD. AMOUNT OF YELLOW SECRETIONS PER ETT. COUGHS AND CHEWS OF ETT. OG TO INTERMITTENT SUCTION WITH GREEN LIQUID DRAINAGE. CHECK FOR PLACEMENT FOR AIR BOLUS AUBIBLE IN ABD. MCLEOD CATH PATENT DRAINING DARK ZOLTAN WITH SEDIMENT IN LINE. RECTAL TUBE WITH [id number] BROWN IN BAG. HEAD OF BED ELEVATED AT 30 DEGREES. REPOSITIONED.
--- NOTE | 2019-05-30 09:30 | NUR ---
DR. HERNANDEZ HERE TUBE FEEDING ORDERED. TALKED WITH KEENA. SUCTIONED MOD AMOUTN YELLOW SECRETIONS PER ETT. GOOD COUGH REFLEX
--- NOTE | 2019-05-30 10:07 | NUR ---
WEANING LEVOPHED TOLERATED
--- NOTE | 2019-05-30 10:30 | NUR ---
TUBE FEEDING STARTED NEPRO AT 20 ML HOUR AND FLUSH 25 ML Q 4 HOURS
--- NOTE | 2019-05-30 11:00 | NUR ---
DR. MOON HERE, BICARB IV TURNED OFF PER DR. MOON ORDERS. PATIENT TO BE DIALYSIS TO DAY.
--- NOTE | 2019-05-30 11:12 | NUR ---
NUTRITION F/U RECEIVED CONSULT TO START TUBE FEEDS. DISCUSSED WITH MD. WILL START NEPRO AT 20 CC/HR. DO NOT ADVANCE. 25 CC H2O FLUSH Q [address] FOLLOWING
--- NOTE | 2019-05-30 11:44 | NUR ---
COMPLETE BED BATH GIVEN LINEN CHANGED. SMALL OPEN AREA ON RIGHT BUTTOCK. MCLEOD CATH CARE DONE. SCD REAPPLIED ON LOWER LEGS. PATIENT TOLERATED FAIR.
--- NOTE | 2019-05-30 14:05 | NUR ---
DIALYSIS IN ROOM SETTING UP. NO CHANGE IN PATIENT NO DISTRESS
--- NOTE | 2019-05-30 15:30 | NUR ---
TOLERATING DIALYSIS WELL. NO CHANGE IN LEVOPHED DURING DIALYSIS.
--- NOTE | 2019-05-30 16:30 | NUR ---
DIALYSIS COMPLETED. 3 LITERS REMOVED. NO INCREASE IN LEVOPHED REQUIRED. PATIENT TOLERATED WELL MOTHER AT BEDSIDE UPDATE GIVEN. PATIENT IS REACHING FOR ETT WHEN NOT RESTRAINTED. ACTS LIKE IS GOING TO WRAP HIS HAND AROUND THE ETT TUBE. RESTRAINTS RETIED.
[2019-05-30 18:07] LABS: AEROBE ID Final report (())
--- NOTE | 2019-05-30 18:18 | NUR ---
DIALYSIS IN PROGRESS PATIENT TOLERATING WELL. NO DROP IN BLOOD PRESSURE.
--- NOTE | 2019-05-30 18:33 | NUR ---
WEANING LEVOPHED TOLERATED. TOLERATING TUBE FEEDING. RECTAL BAG CHANGED. PASSING ALOT OF GAS. RESTING NO DISTRESS AT THIS TIME.VERSE GIVEN IV X 1 THIS SHIFT.
[2019-05-30 18:41] LABS: HEMATOCRIT 25.5 % (42.0-54.0); HEMOGLOBIN 8.8 g/dL (13.5-17.5)
--- NOTE | 2019-05-30 19:15 | NUR ---
RECEIVED PATIENT CARE SHIFT ASSESSMENT COMPLETED SEE FLOWSHEET. NOTED TREMORS - PATIENT TRACKING WITH EYES. VSS CLEANED YELLOW DRIED DRAINAGE FROM EYES, EYES JAUNDICED PERRLA. 3 AND BRISK. REPOSITIONED FOR COMFORT ORAL CARE RECEIVED. CPOC
--- NOTE | 2019-05-30 21:51 | NUR ---
RECEIVED HS MEDICATIONS - TREMORS NOTED, VENTILATOR COMPLIANT AT THIS TIME. VSS CPOC
--- NOTE | 2019-05-30 23:30 | NUR ---
REASSESSMENT COMPLETED SEE FLOWSHEET. PT EYES OPEN TRACKING - RESTRAINED HAND REACHING FOR TUBE. PT DOES NOT RESPOND TO VERBAL COMMANDS BUT CAN SQUEEZE THIS NURSES HAND IN RESPONSE TO HIS OWN HAND BEING SQUEEZED. SHAKING HEAD YES AND NO APPROPRIATELY. LEVOPHED TITRATED AT THIS TIME SEE FLOWSHEET
[2019-05-31] VITALS (78 sets, daily range): BP systolic 77–139; BP diastolic 43–84
--- NOTE | 2019-05-31 01:39 | NUR ---
PATIENT RESTING COMFORTABLY ON VENTILATOR. NO SEDATION. VSS CPOC
--- NOTE | 2019-05-31 03:40 | NUR ---
REASSESMENT COMPLETED SEE FLOWSHEET
[2019-05-31 06:08] LABS: ALBUMIN 1.9 g/dL (3.4-5.0); ANION GAP 15.2 mmol/L (8-16); CALCIUM 7.3 mg/dL (8.5-10.1); CARBON DIOXIDE 28.4 mmol/L (21.0-32.0); CREATININE - SERUM 3.8 mg/dL (0.6-1.3); POTASSIUM - SERUM 3.6 mmol/L (3.5-5.1)
[2019-05-31 06:11] LABS: BILIRUBIN - TOTAL 32.18 mg/dL (0.2-1.3); PROTEIN - SERUM 5.7 g/dL (6.4-8.2)
--- NOTE | 2019-05-31 07:00 | NUR ---
AWAKE AND OBEYING COMMANDS, MAKING EYE CONTACT, HAND SQUEEZED ON REQUEST, NODES HEAD ON REQUEST, MOVES FEET ON REQUEST . DENIES PAIN. ETT SECURE TO VENT BILATERAL LUNG SOUNDS EQUAL. GOOD COUGH REFLEX. WILL CHEW ON ETT. BITE BLOCK IN PLACE. RIJ TRIALYSIS DIALYSIS CATH IN PLACE DRESSING DRY AND INTACT. LEFT SUBCLAVIAN INFUSING WITH LEVOPHED AT 3 MCG/MIN. WILL WEAN TOLERATED. VASOPRESSIN AT 0.04 UNITS HOUR. PROTONIX 8 MG HOUR. MCLEOD PATENT DRAINING DARK ZOLTAN URINE. RECTAL TUBE IN PLACE. MONITOR SR. OG INFUSING WITH NEPHRO AT 20 ML HOUR .NO RESIDUAL. ABD DISTENDED AND FIRM.
[2019-05-31 07:27] LABS: HEMATOCRIT 25.8 % (42.0-54.0); HEMOGLOBIN 8.8 g/dL (13.5-17.5)
--- NOTE | 2019-05-31 08:00 | NUR ---
MOTHER HERE UPDATE GIVEN. PATIENT STILL OBEYING COMMANDS. WEANING LEVOPHED
--- NOTE | 2019-05-31 09:30 | NUR ---
DR. HERNANDEZ HERE. TALKED WITH MOTHER.
--- NOTE | 2019-05-31 10:30 | NUR ---
COMPLETE BED BATH GIVEN LINEN CHANGED. LONG RED BRUSING TYPE AREA NOTED ON LEFT BUTTOCK. HAIR WASHED. TOLERATED WELL
--- NOTE | 2019-05-31 11:30 | NUR ---
DR. LIMA HERE.
--- NOTE | 2019-05-31 12:11 | NUR ---
MOTHER HERE UPDATE GIVEN.
--- NOTE | 2019-05-31 15:30 | NUR ---
101.[address] TO [address] LIMA ORDERS RECEIVED
--- NOTE | 2019-05-31 15:49 | OP ---
PATIENT NAME: GUIDO CHANEL MEDICAL RECORD: [id number] :[birth year] LOCATION:[facility] D.2305 ADMISSION DATE:05/24/19 SURGEON: STALIN SOUZA MD DATE OF OPERATION: 05/26/2019 PREOPERATIVE DIAGNOSIS: Acute renal failure. POSTOPERATIVE DIAGNOSIS: Acute renal failure. PROCEDURE: Insertion of right internal jugular Trialysis catheter (triple lumen non-cuffed non-tunneled hemodialysis catheter). SURGEON: Stalin Souza MD GLASS BEAD MAKER: None. BLOOD LOSS: Minimal. ANESTHESIA: Local. COMPLICATIONS: None. The risks, possible complications and alternatives to the procedure were explained. A consent form was signed. OPERATIVE COURSE: The patient was seen in his ICU bed. He was placed in the Trendelenburg position. The right neck was interrogated with the ultrasound. It revealed a large compressible right internal jugular vein. The right neck was sterilely prepped and draped. A local anesthetic was used to infiltrate the skin and subcutaneous tissues at the base of the right neck. The right internal jugular vein was percutaneously accessed in an antegrade fashion. A guidewire was passed easily. A small skin mark was accomplished. A vessel dilator was used to dilate a subcutaneous tract. A Trialysis catheter was inserted over the wire. It was sutured in place times 3. All lumens flushed easily and aspirated dark, nonpulsatile blood. A stat portable chest x-ray revealed adequate placement of the Trialysis catheter without radiographic evidence of complication. TRANSINT:[id number] Voice Confirmation ID: [id number] DOCUMENT ID: [id number] STALIN SOUZA MD at 1549 CC: [id number] DICTATION DATE: 05/27/19 1249 CONCRETE SCULPTOR: 05/27/19 1311 ADM IN [id number] [place] [address]
--- NOTE | 2019-05-31 19:08 | NUR ---
SHIFT ASSESSMENT COMPLETED SEE FLOWSHEET
--- NOTE | 2019-05-31 21:22 | NUR ---
MARIELA EWDARDS RECEIVED VSS CPOC
--- NOTE | 2019-05-31 23:15 | NUR ---
REASSESSMENT COMPLETED SEE FLOWSHEET
[2019-06-01] VITALS (36 sets, daily range): BP systolic 88–141; BP diastolic 31–81
--- NOTE | 2019-06-01 03:05 | NUR ---
REASSESSMENT COMPLETED SEE FLOWSHEET
[2019-06-01 05:25] LABS: HEMATOCRIT 24.6 % (42.0-54.0); HEMOGLOBIN 8.2 g/dL (13.5-17.5); MCHC 33.3 g/dL (31.0-37.0); MCV 102.1 fL (80.0-100.0); MEAN PLATELET VOLUME 11.6 fL (7.4-10.4); PLATELET COUNT 88 10x3/uL (130-400); RBC 2.41 10x6/uL (4.20-6.10); WBC 16.8 10x3/uL (4.8-10.8)
[2019-06-01 05:41] LABS: LYMPHOCYTES 5 % (15-50); MONOCYTES 8 % (2-11); NEUTROPHILS 84 % (40-80); PLATELET ESTIMATE DECREASED
[2019-06-01 05:52] LABS: ALBUMIN 1.8 g/dL (3.4-5.0); ANION GAP 16.7 mmol/L (8-16); BILIRUBIN - TOTAL 31.07 mg/dL (0.2-1.3); CALCIUM 7.3 mg/dL (8.5-10.1); CARBON DIOXIDE 24.6 mmol/L (21.0-32.0); CREATININE - SERUM 4.9 mg/dL (0.6-1.3); POTASSIUM - SERUM 3.3 mmol/L (3.5-5.1); PROTEIN - SERUM 5.5 g/dL (6.4-8.2)
--- NOTE | 2019-06-01 07:15 | NUR ---
PATIENT AWAKE. POTASSIUM REPLACED PER PROTOCOL. VSS. LINES ZEROED. REPORT RECIEVED FROM KALYANI SHOEMAKER. WILL CONTINUE TO MONITOR
--- NOTE | 2019-06-01 09:45 | NUR ---
DIALYSIS SPOKE WITH RED. DIALYSIS TO BE DONE PER RED ORDRES VIA DIALYSIS. CLARIFIED ORDER BECAUSE RED NOTE SAYS HOLD TODAY.
--- NOTE | 2019-06-01 10:46 | NUR ---
Nutrition follow-up: Pt remains intubated; no sedation Pressors continue Nepro infusing @ 20 ml/hr not advancing at this time dialysis Lactulose Rectal tube Pt awake and tracking; responding appropriatly per nursing Wt: 332# When medically feasible, recommend increasing TF to goal rate of 50 ml/hr RDN following
--- NOTE | 2019-06-01 11:00 | NUR ---
DIALYSIS AT BEDSIDE
--- NOTE | 2019-06-01 15:00 | NUR ---
DIALYSIS AT BEDSIDE. PATIENT STABLE. VSS. NO DISTRESS NOTED. PATIENT CALM AND COOPERATIVE. FOLLOWS COMMANDS. PATIENT TURNED. ICE PACKS APPLIED TO UNDER ARMS TO BREAK 99.9 FEVER. WILL CONTINUE TO MONITOR
--- NOTE | 2019-06-01 17:00 | NUR ---
PATIENT RECIEVED CHG BATH AND LINEN CHANGE.
--- NOTE | 2019-06-01 18:12 | NUR ---
CALLED DR GAY TO APPROVE HOME MED AND ADD TO MAR
--- NOTE | 2019-06-01 19:30 | NUR ---
PT AWAKE WITH EYES OPEN, UNABLE TO MAKE NEEDS KNOWN, ETT PATENT TO VENT, L TLSC INTACT WITH VASOPRESSIN GTT, LEVOPHED GTT AND PROTONIX GTT INFUSING, PT IS JAUNDICED, MCLEOD TO BSD WITH DARK URINE, RECTAL TUBE IN PLACE
--- NOTE | 2019-06-01 21:30 | NUR ---
RMAINS AWAKE WITH NO CHANGES NOTED
--- NOTE | 2019-06-01 23:30 | NUR ---
NO CHANGES, VITALS STABLE, LEVOPHED GTT DISCONTINUED
[2019-06-02] VITALS (67 sets, daily range): BP systolic 78–125; BP diastolic 47–87
--- NOTE | 2019-06-02 01:30 | NUR ---
eyes open, follows commands, remains in restraints
--- NOTE | 2019-06-02 05:09 | NUR ---
NO CHANGES NOTED, REMAINS ALERT, RESTRAINTS IN USE
[2019-06-02 05:10] LABS: APTT 40.6 SECONDS (22.8-39.4); INR 2.14 (0.85-1.17); PROTIME 23.2 SECONDS (11.6-15.0)
[2019-06-02 05:25] LABS: ANION GAP 19.3 mmol/L (8-16); CALCIUM 7.2 mg/dL (8.5-10.1); CARBON DIOXIDE 24.3 mmol/L (21.0-32.0); CREATININE - SERUM 5.6 mg/dL (0.6-1.3); MAGNESIUM - SERUM 2.8 mg/dL (1.8-2.4); PHOSPHOROUS 6.1 mg/dL (2.5-4.9); POTASSIUM - SERUM 3.6 mmol/L (3.5-5.1)
[2019-06-02 05:27] LABS: HEMATOCRIT 26.3 % (42.0-54.0); HEMOGLOBIN 8.8 g/dL (13.5-17.5); MCH 34.1 pg (26.0-34.0); MCHC 33.5 g/dL (31.0-37.0); MCV 101.9 fL (80.0-100.0); MEAN PLATELET VOLUME 11.6 fL (7.4-10.4); PLATELET COUNT 114 10x3/uL (130-400); RBC 2.58 10x6/uL (4.20-6.10); RDW 23.7 % (11.5-14.5); WBC 24.9 10x3/uL (4.8-10.8)
[2019-06-02 05:33] LABS: BILIRUBIN - TOTAL 33.72 mg/dL (0.2-1.3); PROTEIN - SERUM 5.7 g/dL (6.4-8.2)
[2019-06-02 06:10] LABS: LYMPHOCYTES 6 % (15-50); MONOCYTES 1 % (2-11); NEUTROPHILS 90 % (40-80); PLATELET ESTIMATE DECREASED
[2019-06-02 06:12] LABS: D-DIMER-QUANTITATIVE 10.84 ug/mLFEU (0.20-0.54)
--- NOTE | 2019-06-02 07:10 | NUR ---
REPORT RECEIVED. ASSESSMENT COMPLETE PER FLOW SHEET. VSS. NO NEW CHANGES WILL CONTINUE TO MONITOR
--- NOTE | 2019-06-02 09:07 | NUR ---
NUTRITION F/U CHART REVIEWED, PT REMAINS ON VENT. NEPRO AT 20 CC/HR. WHEN MEDICALLY FEASIBLE RECOMMEND GRADUAL TF RATE INCREASE TO GOAL 50 CC/HR. RD FOLLOWING
--- NOTE | 2019-06-02 09:52 | EC ---
PATIENT:GUIDO CHANEL DATE OF SERVICE: 05/24/19 SEX: M MEDICAL RECORD: [id number] DATE OF : [birth year] LOCATION:[facility] AGE OF PATIENT: 43 ADMISSION DATE: 05/24/19 REFERRING PHYSICIAN: INTERPRETING PHYSICIAN: KAMILLA KENNEY MD ECHOCARDIOGRAM REPORT ECHO CHARGES 4 ECHO COMPLETE Date: 05/25/19 CLINICAL DIAGNOSIS: HYPOTENSION ECHOCARDIOGRAPHIC MEASUREMENTS (adult normal given) AC root (d.<3.7cm) 3.8 cm LV Septum d (<1.2 cm> 1.9 cm Valve Excursion 1.9 cm LV Septum (systole) 2.0 cm Left Atria (s.<4.0cm> 5.6 cm LVPW d(<1.2cm) 1.8 cm RV (d.<2.3cm) 5.7 cm LVPW (sytole) 2.3 cm LV diastole(<5.6CM) 6.0 cm MV E-F(>70mm/sec) cm LV systole 3.2 cm LVOT Diameter 2.2 cm MV exc.(>10mm) 1.6 cm Est.ejection fraction (50-75%) % DOPPLER: LVIT cm/sec A 81.0 cm/sec E 105 cm/sec LA cm/sec RVSP 35 mmHg LVOT 146 cm/sec AOP1/2T m/s Asc. Ao 204 cm/sec RVOT 165 cm/sec RA cm/sec PA 177 cm/sec AV Gradient Peak 16.70mmHg AV Mean 10.78mmHg AV Area 2.6 cm MV Gradient Peak 7.36 mmHg MV Mean 3.40 mmHg MV Area cm COMMENTS: Director Account Management: Soraya SOTO Mlt: 1 Dr. Kenney TAPE# PACS Pericardial Effusion N DATE OF SERVICE: 05/25/2019 FINDINGS: 1. Left ventricular chamber size is within normal limits. Left ventricular systolic function is normal. Overall ejection fraction is estimated at 60%. 2. Left atrium, right atrium, and right ventricular chamber sizes are iliv-vp-crvmdaqrvr dilated. 3. Valvular structures have normal structure and motion. 4. Doppler interrogation reveals no significant valvular insufficiency or stenosis. ECHOCARDIOGRAM REPORT [id number] GUIDO CHANEL 5. No evidence of pericardial effusion or left ventricular thrombus. TRANSINT:[id number] Voice Confirmation ID: [id number] DOCUMENT ID: [id number] KAMILLA KENNEY MD at 0952 CC: [id number] DICTATION DATE: 05/25/19 1034 DENTAL FLOSS PACKER: 05/25/19 1336 ADM IN [place] [address] [place] [address]
--- NOTE | 2019-06-02 11:00 | NUR ---
REASSESSMENT COMPLETE PER FLOW SHEET. VSS. NO NEW CHANGES WILL CONTINUE TO MONITOR
--- NOTE | 2019-06-02 11:35 | NUR ---
DR GAY AT BEDSIDE BRONCH ADM.
--- NOTE | 2019-06-02 13:12 | NUR ---
DIALYSIS AT BEDSIDE
--- NOTE | 2019-06-02 15:00 | NUR ---
REASSESSMENT COMPLETE PER FLOW SHEET. VSS. NO NEW CHANGES WILL CONTINUE TO MONITOR
--- NOTE | 2019-06-02 17:00 | NUR ---
FAMILY AT BEDSIDE GIVEN UPDATE.
--- NOTE | 2019-06-02 19:30 | NUR ---
ASSESSMENT COMPLETED, PT NONRESPONSIVE, ETT PATENT TO VENT ON A/C, RATE 20, TV 500, FIO2 45%, PEEP 10, LEFT TLSC INTACT WITH VASOPRESSIN AND PROTONIX INFUSING, OGT INTACT WITH NEPRO @ 20 CC/HR, MCLEOD TO BSD WITH NO UOP NOTED, SCD'S TO BILAT LOWER LEGS, R JUGULAR TRIALYSIS CATH INTACT, BILAT CRACKLES IN LUNG MUSTAFA
--- NOTE | 2019-06-02 21:45 | NUR ---
SPO2 82, PT EMESISED, OGT PLACED TO LIS,FI02 INCREASED TO 100% , ABG'S OBTAINED, 900CC OUT OGT, PAGED DR GAY, ORDERS RECIEVED, GIVEN 2 AMPS NAHCO3 IVP, INCREASED RATE TO 24 ON VENT
--- NOTE | 2019-06-02 23:40 | NUR ---
PT B/P LOW, RESTARTED LEVOPHED GTT @ 5 MCG/MIN
[2019-06-03] VITALS (79 sets, daily range): BP systolic 48–109; BP diastolic 25–83
--- NOTE | 2019-06-03 01:30 | NUR ---
CONT TO ADJUST LEVOPHED GTT, OGT REMAINS TO SUCTION WITH GREEN OUTPUT, SPO2 @ 90%, WILL CONT TO MONITOR
--- NOTE | 2019-06-03 03:30 | NUR ---
B/P LOW INCREASED VASOPRESSIN AND LEVOPHED GTT, NOTED BLOODY DRAINAGE FROM OGT, XRAY IN ROOM FOR CHEST XRAY
--- NOTE | 2019-06-03 04:45 | NUR ---
DR GAY NOTIFIED OF PT DECLINING CONDITION, ORDERS RECIEVED
--- NOTE | 2019-06-03 05:28 | NUR ---
PATIENTS MOTHER NOTIFIED OF CONDITION
[2019-06-03 05:35] LABS: ALBUMIN 2.1 g/dL (3.4-5.0); CALCIUM 7.4 mg/dL (8.5-10.1); CREATININE - SERUM 5.9 mg/dL (0.6-1.3)
[2019-06-03 05:50] LABS: INR 2.28 (0.85-1.17); PROTIME 24.4 SECONDS (11.6-15.0)
[2019-06-03 06:02] LABS: ANION GAP 28.1 mmol/L (8-16); BILIRUBIN - TOTAL 33.62 mg/dL (0.2-1.3); CARBON DIOXIDE 17.9 mmol/L (21.0-32.0)
[2019-06-03 06:46] LABS: PROTEIN - SERUM 6.8 g/dL (6.4-8.2)
--- NOTE | 2019-06-03 07:10 | NUR ---
REPORT RECEIVED. ASESSMENT COMPLETE PER FLOW SHEET. VSS. NO NEW CAHNGES PT RESTING COMFORTABLY WILL CONTINUE TO MONITOR
[2019-06-03 07:36] LABS: HEMATOCRIT 30.1 % (42.0-54.0); HEMOGLOBIN 9.7 g/dL (13.5-17.5); MCH 34.4 pg (26.0-34.0); MCHC 32.2 g/dL (31.0-37.0); MCV 106.7 fL (80.0-100.0); MEAN PLATELET VOLUME 11.8 fL (7.4-10.4); PLATELET COUNT 146 10x3/uL (130-400); RBC 2.82 10x6/uL (4.20-6.10); RDW 24.3 % (11.5-14.5); WBC 38.5 10x3/uL (4.8-10.8)
[2019-06-03 09:46] LABS: CRENATED CELLS OCC; LYMPHOCYTES 10 % (15-50); MONOCYTES 20 % (2-11); NEUTROPHILS 56 % (40-80)
[2019-06-03 09:47] LABS: PLATELET ESTIMATE NORMAL; ROULEAUX OCC
--- NOTE | 2019-06-03 10:36 | NUR ---
DNR ORDERS RECEIVED FROM MOTHER AT BEDSIDE WITNESSED BY GREY SHOEMAKER.
--- NOTE | 2019-06-03 10:38 | NUR ---
DR VICTOR HUGO DAMIAN
--- NOTE | 2019-06-03 10:45 | NUR ---
DR GAY AT BEDSIDE T ORDER TO INCREASE DOPAMINE TO 40MCG/KG/MIN AT THIS TIME.
--- NOTE | 2019-06-03 11:30 | NUR ---
REASSESSMENT COMPLETE, NO CHANGES NOTED, FAMILY AT BEDSIDE,
[2019-06-03 12:10] LABS: FUNGUS STAIN Final report (())
--- NOTE | 2019-06-03 12:50 | NUR ---
DR VICTOR HUGO DAMIAN GIVEN UDPATE REGAUCELYING PT FAMILY WISHES TO TURN OF MEDICATION AT THIS TIME. T ORDER TO D.C. IV INFUSIONS AT THIS TIME.
--- NOTE | 2019-06-03 13:00 | NUR ---
FAMILY AT BEDSIDE. NO NEW CHANGES
--- NOTE | 2019-06-03 14:15 | NUR ---
DR CLAIRE AT BEDSIDE TO PRONOUNCE FAMILY GIVEN UDPATE
--- NOTE | 2019-06-03 15:00 | NUR ---
REASSESSMENT COMPLETE PER FLOW SHEET. VSS. NO NEW CHANGES WILL CONTINUE TO MONITOR
[2019-06-03 15:21] LABS: ACID FAST SMEAR Negative (()); AFB SPECIMEN PROCESSING Concentration (())
--- NOTE | 2019-06-03 16:15 | NUR ---
DR CLAIRE AT BEDSIDE TO PRONOUCE. FAMILY GIVEN UPDATE
--- NOTE | 2019-06-03 16:20 | NUR ---
RODDY CALLED GIVEN UDPATE. DENIED. [facility] CALLED AWAITING DEWAYNE
--- NOTE | 2019-06-03 18:07 | NUR ---
HOME HERE FOR PT
[2019-06-04 11:10] LABS: FACTOR VIII - APTT 36.7 sec (22.9-30.2); FACTOR VIII - APTT 1:1 NP 28.5 sec (22.9-30.2); FACTOR VIII ACTIVITY 414 % (56-140)
[2019-06-04 13:10] LABS: FACTOR VIII - APTT 1:1 60 MIN 29.6 sec (22.9-30.2)
[2019-06-04 18:08] LABS: AEROBE ID Final report (())
[2019-06-05 17:08] LABS: FUNGUS MYCOLOGY CULTURE Preliminary report (())
--- NOTE | 2019-06-05 19:25 | MORECARE ---
CASE MANAGEMENT DISCHARGE SUMMARY PATIENT: GUIDO CHANEL UNIT: [id number] ADM DATE: 05/24/19 AGE: 43 : [birth year] SEX: M ROOM/BED: D.2305 AUTHOR: JAVAN,DOC PHYSICIAN: REFERRING PHYSICIAN: NAMITA LIMA MD DATE OF SERVICE: 06/05/19 Discharge Plan Patient Name: GUIDO CHANEL Facility: [facility]:[place] : 1975 Planned Disposition: Anticipated Discharge Date: Discharge Date: 06/03/2019 Expected LOS: Initial Reviewer: [email or web address] Initial Review Date: 05/26/2019 Generated: 06/05/19 8:25 pm DCP- Discharge Planning Updated by [email or web address]: Manisha Mccarthy on 05/26/19 4:[address] Patient Name: GUIDO CHANEL Admission Status: ER Accout number: [id number] Admission Date: 05-24-2019 : 1975 Admission Diagnosis: Attending: NAMITA LIMA Current LOS: 2 Anticipated DC Date: Planned Disposition: Primary Insurance: UNINSURED DISCOUNT PLAN Discharge Planning Comments: CM met with patient's mother (Eren) at bedside after explaining CM role and obtaining verbal consent. Patient lives in [place] and is here visiting his mother for the last two weeks. Eren states that she plans for him to live with her upon discharge if he survives this. She also stated that he needs to go to an alcohol treatment facility. Patient is suppose to have hemodialysis today after placement of cath. Eren denies any discharge needs at this time. CM will continue to follow and assist as needed with discharge planning / needs. [employer] Activities Clerk: Manisha Mccarthy DCP- Discharge Planning Updated by [email or web address]: Manisha Mccarthy on 05/25/19 5:[address] CM spoke with [employer] and patient is a resident of [place] was just here visiting his mother. Unable to apply for [place] Medicaid. Stuart checked and he doesn't have Medicaid in [place] either.CM will continue to follow and assist as needed with discharge planning / needs. DCPIA - Discharge Planning Initial Assessment Updated by [email or web address]: Manisha Mccarthy on 05/26/19 5:28 pm * Is the patient Alert and Oriented? No * PCP unknown * Pharmacy [facility] - [facility] * Preadmission Environment Home with Family * ADLs Independent * Equipment None * List name and contact numbers for known caregivers / representatives who currently or will assist patient after discharge: EREN CHANEL - MOTHER- [phone] * Verbal permission to speak to the caregivers and representatives has been obtained from the patient. N/A * Community resources currently utilized None * Additional services required to return to the preadmission environment? No * Can the patient safely return to the preadmission environment? Yes * Has this patient been hospitalized within the prior 30 days at any hospital? No Last DP export: 05/26/19 4:46 p Patient Name: GUDIO CHANEL Page [id number] at 1925 All edits/amendments must be made on the electronic document DICTATION DATE: 06/05/191923 COMPONENT ENGINEER: ANGEL 06/05/191923 RPT#: [id number] DC DATE:06/03/19 STATUS: DIS IN [facility] [address] [place] [address] END OF REPORT
== END 2019-06-03 16:15 | DRG 432 ==
LOC: D.ER 08:57 → D.ICU 12:56 → D.MS 12:56 → D.CVICU 12:56 → D.ICU 05-25 15:28
PROVIDERS: Family Medicine; Internal Medicine Gastroenterology; Internal Medicine Pulmonary Disease; ADMIT Internal Medicine Nephrology; ATTEND Internal Medicine Nephrology
PROC: 0B9J8ZX Drainage of Left Lower Lung Lobe, Via Natural or Artificial Opening Endoscopic, Diagnostic (ICD-10-PCS; principal; 2019-05-25)
PROC: 05H633Z Insertion of Infusion Device into Left Subclavian Vein, Percutaneous Approach (ICD-10-PCS; 2019-05-25)
PROC: 4A133B1 Monitoring of Arterial Pressure, Peripheral, Percutaneous Approach (ICD-10-PCS; 2019-05-25)
PROC: 4A133J1 Monitoring of Arterial Pulse, Peripheral, Percutaneous Approach (ICD-10-PCS; 2019-05-25)
PROC: 0BH18EZ Insertion of Endotracheal Airway into Trachea, Via Natural or Artificial Opening Endoscopic (ICD-10-PCS; 2019-05-25)
PROC: 5A1955Z Respiratory Ventilation, Greater than 96 Consecutive Hours (ICD-10-PCS; 2019-05-25)
PROC: 05HM33Z Insertion of Infusion Device into Right Internal Jugular Vein, Percutaneous Approach (ICD-10-PCS; 2019-05-26)
PROC: 0B998ZZ Drainage of Lingula Bronchus, Via Natural or Artificial Opening Endoscopic (ICD-10-PCS; 2019-06-02)
PROC: 0B978ZZ Drainage of Left Main Bronchus, Via Natural or Artificial Opening Endoscopic (ICD-10-PCS; 2019-06-02)
PROC: 0B9B8ZZ Drainage of Left Lower Lobe Bronchus, Via Natural or Artificial Opening Endoscopic (ICD-10-PCS; 2019-06-02)
DX: K70.40 Alcoholic hepatic failure without coma (principal); J69.0 Pneumonitis due to inhalation of food and vomit; J96.02 Acute respiratory failure with hypercapnia; J96.01 Acute respiratory failure with hypoxia; N17.0 Acute kidney failure with tubular necrosis; K85.90 Acute pancreatitis without necrosis or infection, unspecified; J15.0 Pneumonia due to Klebsiella pneumoniae; J15.4 Pneumonia due to other streptococci; A41.9 Sepsis, unspecified organism; R65.21 Severe sepsis with septic shock; N39.0 Urinary tract infection, site not specified; J90 Pleural effusion, not elsewhere classified; D68.9 Coagulation defect, unspecified; F10.231 Alcohol dependence with withdrawal delirium; G31.2 Degeneration of nervous system due to alcohol; E66.01 Morbid (severe) obesity due to excess calories; F32.9 Major depressive disorder, single episode, unspecified; K70.30 Alcoholic cirrhosis of liver without ascites; D64.9 Anemia, unspecified; Z66 Do not resuscitate